=== PATIENT | male | born 1975 | race Caucasian/White ===

== ENCOUNTER 2018-06-10 10:25 | Inpatient (IN) | payer BC ==
[~2018-06-10] VITALS: Ht 182.9 cm; Wt 147.1 kg
[2018-06-10 10:31] VITALS: Ht 182.9 cm; Wt 147.1 kg
[2018-06-10 11:08] LABS: BASOPHIL % 0.3 % (0-2); PLATELET COUNT 285 x10^3mcL (130-400); RED CELL DISTRIBUTION WIDTH 13.3 % (11.5-14.5)
[2018-06-10 11:13] LABS: microscopic required? NO
[2018-06-10 11:19] LABS: urine erythrocyte NEGATIVE (NEGATIVE)
[2018-06-10 11:43] LABS: CALCIUM 8.4 mg/dL (8.5-10.1); CARBON DIOXIDE 28.7 mmol/L (21-32); CHLORIDE SERUM 104 mmol/L (98-107); CREATININE SERUM 1.1 mg/dL (0.7-1.3); GFR1 > 60 mL/min; GLUCOSE SERUM 126 mg/dL (74-106); POTASSIUM SERUM 3.2 mmol/L (3.5-5.1); SODIUM SERUM 143 mmol/L (136-145)
[2018-06-10 11:48] LABS: ALBUMIN 3.6 g/dL (3.4-5.0); ALKALINE PHOSPHATASE 85 U/L (46-116); ALT/SGPT 41 U/L (16-63); AST/SGOT 14 U/L (15-37); BILIRUBIN TOTAL 0.3 mg/dL (0.20-1.00); TOTAL PROTEIN, SERUM 7.3 g/dL (6.4-8.2)
[2018-06-10] MEDS ORDERED: DDAVP0.1 MG PO (12:39)
[2018-06-10 13:09] LABS: CHOLESTEROL/HDL RATIO 4.6; MAGNESIUM 1.8 mg/dL (1.8-2.4); PHOSPHOROUS 3.7 mg/dL (2.5-4.9)
[2018-06-10 13:14] LABS: FREE T4 0.87 ng/dL (0.76-1.46); FREE THYROXINE INDEX 2.8 ug/dL (1.4-4.5); T4(THYROXINE) 8.6 ug/dL (4.7-13.3)
[2018-06-10 13:18] LABS: T3 TOTAL 1.14 ng/mL
[2018-06-10 14:13] VITALS: BP 168/104
[2018-06-10 20:06] VITALS: BP 143/81
[2018-06-10 20:17] VITALS: BP 151/84
[2018-06-11 06:22] VITALS: BP 161/103
[2018-06-11 06:26] LABS: BASOPHIL % 0.2 % (0-2); PLATELET COUNT 286 x10^3mcL (130-400); RED CELL DISTRIBUTION WIDTH 13.2 % (11.5-14.5)
[2018-06-11 06:43] VITALS: BP 159/82
[2018-06-11 07:22] LABS: CALCIUM 8.4 mg/dL (8.5-10.1); CARBON DIOXIDE 30.3 mmol/L (21-32); CHLORIDE SERUM 99 mmol/L (98-107); GFR1 > 60 mL/min; GLUCOSE SERUM 100 mg/dL (74-106); MAGNESIUM 1.9 mg/dL (1.8-2.4); PHOSPHOROUS 4.3 mg/dL (2.5-4.9); POTASSIUM SERUM 3.1 mmol/L (3.5-5.1); SODIUM SERUM 136 mmol/L (136-145)
[2018-06-11 08:00] VITALS: BP 141/86
[2018-06-11 16:09] VITALS: BP 153/94
[2018-06-11 21:34] VITALS: BP 134/84
[2018-06-12 05:42] VITALS: BP 133/72
[2018-06-12 06:28] LABS: BASOPHIL % 0.2 % (0-2); PLATELET COUNT 274 x10^3mcL (130-400); RED CELL DISTRIBUTION WIDTH 12.9 % (11.5-14.5)
[2018-06-12 06:51] LABS: CALCIUM 8.6 mg/dL (8.5-10.1); CARBON DIOXIDE 27.8 mmol/L (21-32); CHLORIDE SERUM 96 mmol/L (98-107); GFR1 > 60 mL/min; GLUCOSE SERUM 113 mg/dL (74-106); MAGNESIUM 1.9 mg/dL (1.8-2.4); PHOSPHOROUS 3.9 mg/dL (2.5-4.9); POTASSIUM SERUM 3.1 mmol/L (3.5-5.1); SODIUM SERUM 134 mmol/L (136-145)
[2018-06-12 09:30] VITALS: BP 154/90
[2018-06-12] MEDS ORDERED: LEVOFLOXACIN500 M1 PO (12:15)
[2018-06-12] MEDS ORDERED: FLA500 PO (12:16)
[2018-06-12] MEDS ORDERED: LAC PO (12:16)
[2018-06-12 13:24] VITALS: BP 154/90
[2018-06-12 15:56] LABS: CALCIUM 8.4 mg/dL (8.5-10.1); CARBON DIOXIDE 28.2 mmol/L (21-32); CHLORIDE SERUM 100 mmol/L (98-107); CREATININE SERUM 0.9 mg/dL (0.7-1.3); GFR1 > 60 mL/min; GLUCOSE SERUM 127 mg/dL (74-106); SODIUM SERUM 134 mmol/L (136-145)
== END 2018-06-12 16:40 | disposition home or self-care (01) | DRG 872 ==
LOC: ED 10:25 → MU 12:13
PROVIDERS: Emergency Medicine; Family Medicine; Internal Medicine
DX: A41.9 Sepsis, unspecified organism (principal); E23.2 Diabetes insipidus; Z68.41 Body mass index [BMI] 40.0-44.9, adult; K57.32 Diverticulitis of large intestine without perforation or abscess without bleeding; E78.5 Hyperlipidemia, unspecified; K21.9 Gastro-esophageal reflux disease without esophagitis; F17.210 Nicotine dependence, cigarettes, uncomplicated; G47.33 Obstructive sleep apnea (adult) (pediatric); E83.51 Hypocalcemia; E66.01 Morbid (severe) obesity due to excess calories; Z88.0 Allergy status to penicillin; Z88.5 Allergy status to narcotic agent; Z72.89 Other problems related to lifestyle; Z79.899 Other long term (current) drug therapy
CPT/HCPCS: 83880; 84439; 87046; 87046-59; C9113; J1885; J1956; J2270; J2597; J3490; J7030; J7040; J7050

== ENCOUNTER 2018-06-18 16:58 | Inpatient (IN) | payer BC ==
[~2018-06-18] VITALS: Ht 182.9 cm; Wt 143.8 kg
[~2018-06-18 16:58] MED LIST: DDAVP0.1 MG PO; FLA500 PO; LAC PO; LEVOFLOXACIN500 M1 PO
[2018-06-18 17:27] VITALS: Ht 182.9 cm; Wt 143.8 kg
[2018-06-18 18:26] LABS: CALCIUM 8.7 mg/dL (8.5-10.1); CARBON DIOXIDE 29.4 mmol/L (21-32); CHLORIDE SERUM 100 mmol/L (98-107); CREATININE SERUM 1.3 mg/dL (0.7-1.3); GFR1 > 60 mL/min; GLUCOSE SERUM 116 mg/dL (74-106); SODIUM SERUM 138 mmol/L (136-145)
[2018-06-18 18:29] LABS: BASOPHIL % 0.1 % (0-2); PLATELET COUNT 321 x10^3mcL (130-400); RED CELL DISTRIBUTION WIDTH 13.1 % (11.5-14.5)
[2018-06-18 18:31] LABS: ALBUMIN 3.8 g/dL (3.4-5.0); ALKALINE PHOSPHATASE 85 U/L (46-116); ALT/SGPT 49 U/L (16-63); AST/SGOT 21 U/L (15-37); BILIRUBIN TOTAL 0.5 mg/dL (0.20-1.00); LIPASE 114 IU/L (73-393); TOTAL PROTEIN, SERUM 7.4 g/dL (6.4-8.2)
[2018-06-18] MEDS ORDERED: FLA500 PO (20:39)
[2018-06-18] MEDS ORDERED: DESMOPRESSIN A0.2 MG PO (20:39)
[2018-06-18] MEDS ORDERED: LEVOFLOXACIN500 M1 PO (20:39)
[2018-06-18 20:48] LABS: CHOLESTEROL/HDL RATIO 4.2; MAGNESIUM 1.8 mg/dL (1.8-2.4); PHOSPHOROUS 2.8 mg/dL (2.5-4.9)
[2018-06-18 20:50] LABS: T3 TOTAL 1.32 ng/mL
[2018-06-18 21:14] LABS: FREE T4 1.02 ng/dL (0.76-1.46); FREE THYROXINE INDEX 3.3 ug/dL (1.4-4.5); T4(THYROXINE) 9.3 ug/dL (4.7-13.3)
[2018-06-18 22:06] VITALS: BP 128/85
[2018-06-19 03:47] LABS: microscopic required? NO
[2018-06-19 04:15] LABS: UA SPECIFIC GRAVITY <=1.005 (1.005-1.035); urine erythrocyte NEGATIVE (NEGATIVE)
[2018-06-19 04:23] LABS: AMPHETAMINE QUAL UR NONE DETECTED (See below)
[2018-06-19 06:08] VITALS: BP 120/73
[2018-06-19 07:02] LABS: BASOPHIL % 0.1 % (0-2); PLATELET COUNT 300 x10^3mcL (130-400)
[2018-06-19 07:29] LABS: CALCIUM 8.4 mg/dL (8.5-10.1); CARBON DIOXIDE 27.7 mmol/L (21-32); CHLORIDE SERUM 106 mmol/L (98-107); CREATININE SERUM 1.2 mg/dL (0.7-1.3); GFR1 > 60 mL/min; GLUCOSE SERUM 117 mg/dL (74-106); POTASSIUM SERUM 3.8 mmol/L (3.5-5.1); SODIUM SERUM 143 mmol/L (136-145)
[2018-06-19 09:08] VITALS: BP 135/79
[2018-06-19 15:09] VITALS: BP 135/79
== END 2018-06-19 15:51 | disposition home or self-care (01) | DRG 392 ==
LOC: ED 16:58 → MU 20:08
PROVIDERS: Emergency Medicine; Family Medicine
DX: K57.20 Diverticulitis of large intestine with perforation and abscess without bleeding (principal); E23.2 Diabetes insipidus; K21.9 Gastro-esophageal reflux disease without esophagitis; G47.33 Obstructive sleep apnea (adult) (pediatric); K52.9 Noninfective gastroenteritis and colitis, unspecified; Z88.0 Allergy status to penicillin; Z88.8 Allergy status to other drugs, medicaments and biological substances
CPT/HCPCS: 83880; 84439; J0744; J1956; J2405; J3490; J7030; Q0092; Q9967

== ENCOUNTER 2019-05-17 13:43 | Emergency (ER) | payer BC ==
[~2019-05-17] VITALS: Ht 185.4 cm; Wt 135.6 kg
[~2019-05-17 13:43] MED LIST changes: +DESMOPRESSIN A0.2 MG PO
[2019-05-17 13:58] VITALS: BP 155/94; Ht 185.4 cm; Wt 135.6 kg
== END 2019-05-17 16:00 | disposition left against medical advice (07) ==
LOC: ED 13:43
DX: Z53.21 Procedure and treatment not carried out due to patient leaving prior to being seen by health care provider (principal)